=== PATIENT | female | born 1990 | race Caucasian/White ===

== ENCOUNTER 2016-05-15 17:37 | Emergency (ER) | payer OTHER ==
[2016-05-15] MEDS ORDERED: NS 1,000 ML IV ONE (18:02)
--- NOTE | 2016-05-15 18:02 | EDPHY ---
H & P Stated Complaint: L anterior cp, worse with deep breaths, sob started 2 hours ago HPI/ROS: HPI CHIEF COMPLAINT: Chest pain HISTORY OF PRESENT ILLNESS: This patient very pleasant 26-year-old female, she has no significant medical history except for depression, she presents to the emergency room with 3.5 hours of left-sided chest discomfort. She tells me that she was driving her car to [employer] from [place] and developed a discomfort in left side of her chest that she describes as an achy sensation associated with deep breaths. She tells me that the pain started in left anterior chest did radiate to her back scapula and up to her left shoulder and jaw. It was only associated with breathing and specifically taking deep breaths. At 1 point she did develop a little bit of tingling in her 4th and 5th digit of her left hand. No weakness. Denies not vomiting. But does endorse nausea. She has never had any symptoms like this before. She has not been sick recently. She denies history of DVT or PE. Denies a history of collapsed lung or recent illness or pneumonia. Patient tells me it is since dissipated however on deep inspiration she still has some discomfort. No recent injury. She does not have any risk factors for coronary artery disease nor did she have risk factors for pulmonary embolism. She does not take control. Past Medical History:Depression Past Surgical History: Appendectomy Social History: Denies use of drugs alcohol tobacco products Family History: No significant coronary artery disease At a young age in her family or premature cardiac . ROS REVIEW OF SYSTEMS: A comprehensive 10 point review of systems is otherwise negative aside from elements mentioned in the history of present illness. Exam Constitutional triage nursing summary reviewed, vital signs reviewed, awake/ alert. Eyes normal conjunctivae and sclera, EOMI, PERRLA. HENT normal inspection, atraumatic, moist mucus membranes, no epistaxis, neck supple/ no meningismus, no raccoon eyes. Respiratory clear to auscultation bilaterally, normal breath sounds, no respiratory distress, no wheezing. Cardiovascular rate normal, regular rhythm, no murmur, no edema, distal pulses normal. Gastrointestinal soft, non-tender, no rebound, no guarding, normal bowel sounds, no distension, no pulsatile mass. Genitourinary no CVA tenderness. Musculoskeletal no midline vertebral tenderness, full range of motion, no calf swelling, no tenderness of extremities, no meningismus, good pulses, neurovascularly intact. Skin pink, warm, & dry, no rash, skin atraumatic. Neurologic awake, alert and oriented x 3, AAOx3, moves all 4 extremities equally, motor intact, sensory intact, CN II-XII intact, normal cerebellar, normal vision, normal speech. Psychiatric normal mood/affect. Heme/Lymph/Immune no lymphadenopathy. Differential diagnosis includes but is not limited to: ACS, atypical chest pain , pneumothorax, pneumonia, pulmonary embolism, aortic dissection, congestive heart failure, tumor, musculoskeletal pain, esophageal pain, GERD, peptic ulcer disease, pancreatitis Medical Decision Making: Patient be placed on full cardiac cath technologist, an IV will be established, obtain blood work, patient had a chest x-ray two view, EKG, D- dimer. Re-evaluation: EKG interpretation by me on record in [facility] system. Impression time of EKG 1808, this is sinus rhythm rate of 71, I do not appreciate any signs of arrhythmia, or acute ischemia specifically is no ST elevation, ST depression or T-wave abnormalities. Intervals are appropriate. Normal appearing EKG 1942: re-evaluation at this time patient is not have any chest pain shortness of breath numbness or taking a nausea vomiting or weakness. She is resting comfortably without any complaints. Her EKG is nonischemic negative troponin. Chest x-ray is unremarkable for acute cardiopulmonary disease. D-dimer negative. She is 26 resulted very low risk for cardiac disease and no has no risk factors for PE. I will repeat her EKG and troponin this would be a 5-6 hour troponin. If this is normal is highly unlikely to be acute coronary syndrome cardiac disease or pulmonary embolism. I will allow the patient to go home. She does understand if she develops any worsening chest pain, shortness of breath nausea vomiting diaphoresis that she needs to seek medical attention. ED x-ray chest two view: negative for acute cardiopulmonary disease. Specifically nothing to explain left-sided pleuritic or inspiratory chest pain. No pneumothorax. Image interpreted by myself EKG interpretation by me on record in [facility] [place] system. this is a repeat EKG time of EKG 1945, this is sinus rhythm rate of 70 again there is no acute ischemic change appreciated specifically no ST elevation, ST depression, T-wave abnormalities intervals are appropriate. Unremarkable EKG repeat EKG. When compared to previous EKG unchanged. 2106: repeat troponin is negative. Patient has no chest pain or shortness of breath she is resting comfortably. 1 over patient's extensive workup with her. She feels comfortable going home. At this time she has no chest pain or shortness of breath. I did refer her to Cardiology on an outpatient patient's however she does understand she develops worsening symptoms return to the emergency room. No indication that she is having acute coronary syndrome pulmonary embolism and pneumothorax with normal EKGs normal troponin negative D- dimer and unremarkable chest x-ray. Source: Patient - Personal History Current Tetanus/Diphtheria Vaccine: Unsure Current Tetanus Diphtheria and Acellular Pertussis (TDAP): Unsure - Medical/Surgical History Hx Asthma: No Hx Chronic Respiratory Disease: No Hx Diabetes: No Hx Cardiac Disease: No Hx Renal Disease: No Hx Cirrhosis: No Hx Alcoholism: No Hx HIV/AIDS: No Hx Splenectomy or Spleen Trauma: No Other PMH: denies - Social History Smoking Status: Never smoked Constitutional: Initial Vital Signs Temperature (C) 37.2 C 05/15/16 17:41 Heart Rate 80 05/15/16 17:41 Respiratory Rate 16 05/15/16 17:41 Blood Pressure 110/82 H 05/15/16 17:41 O2 Sat (%) 97 05/15/16 17:41 O2 Delivery Mode Room Air Allergies/Adverse Reactions: No Known Allergies Allergy (Unverified 05/15/16 17:40) Home Medications: Medication Instructions Recorded Effexor 05/15/16 Medical Decision Making - Data Points Laboratory Results: Laboratory Results 05/15/16 18:17 05/15/16 18:17 05/15/16 05/15/16 05/15/16 19:52 18:17 18:17 WBC RBC Hgb Hct MCV MCH MCHC RDW Plt Count MPV Neut % (Auto) Lymph % (Auto) [place] % (Auto) Eos % (Auto) Baso % (Auto) Nucleat RBC Rel Count Absolute Neuts (auto) Absolute Lymphs (auto) Absolute Monos (auto) Absolute Eos (auto) Absolute Basos (auto) Absolute Nucleated RBC Immature Gran % Immature Gran # D-Dimer Sodium 139 mEq/L mEq/L (134-144) Potassium 4.2 mEq/L mEq/L (3.5-5.2) Chloride 101 mEq/L mEq/L (97-110) Carbon Dioxide 28 mEq/l mEq/l (22-31) Anion Gap 10 mEq/L mEq/L (8-16) BUN 12 mg/dL mg/dL (7-23) Creatinine 0.8 mg/dL mg/dL (0.6-1.0) Estimated GFR > 60 Glucose 82 mg/dL mg/dL (70-100) Calcium 9.8 mg/dL mg/dL (8.5-10.4) Magnesium 2.2 mg/dL mg/dL (1.6-2.3) Total Bilirubin 0.8 mg/dL mg/dL (0.1-1.4) Conjugated Bilirubin 0.4 mg/dL mg/dL (0.0-0.5) Unconjugated Bilirubin 0.4 mg/dL mg/dL (0.0-1.1) AST 31 IU/L IU/L (14-46) ALT 36 IU/L IU/L (9-52) Alkaline Phosphatase 92 IU/L IU/L (38-126) Creatine Kinase 101 IU/L IU/L (0-156) CK-MB (CK-2) Fraction 0.52 ng/mL ng/mL (0-3.19) Troponin I < 0.012 ng/mL ng/mL < 0.012 ng/mL ng/mL (0-0.034) (0-0.034) NT-Pro-B Natriuret Pep 42 pg/mL pg/mL (0-125) Total Protein 7.9 g/dL g/dL (6.3-8.2) Albumin 4.7 g/dL g/dL (3.5-5.0) Lipase 119.0 IU/L IU/L (23-300) Beta HCG, Qual NEGATIVE 05/15/16 05/15/16 18:17 18:17 WBC 8.53 10^3/uL 10^3/uL (3.80-9.50) RBC 4.98 10^6/uL 10^6/uL (4.18-5.33) Hgb 14.8 g/dL g/dL (12.6-16.3) Hct 44.0 % % (38.0-47.0) MCV 88.4 fL fL (81.5-99.8) MCH 29.7 pg pg (27.9-34.1) MCHC 33.6 g/dL g/dL (32.4-36.7) RDW 12.8 % % (11.5-15.2) Plt Count 275 10^3/uL 10^3/uL (150-400) MPV 10.3 fL fL (8.7-11.7) Neut % (Auto) 60.3 % % (39.3-74.2) Lymph % (Auto) 31.8 % % (15.0-45.0) [place] % (Auto) 7.6 % % (4.5-13.0) Eos % (Auto) 0.0 % L % (0.6-7.6) Baso % (Auto) 0.1 % L % (0.3-1.7) Nucleat RBC Rel Count 0.0 % % (0.0-0.2) Absolute Neuts (auto) 5.14 10^3/uL 10^3/uL (1.70-6.50) Absolute Lymphs (auto) 2.71 10^3/uL 10^3/uL (1.00-3.00) Absolute Monos (auto) 0.65 10^3/uL 10^3/uL (0.30-0.80) Absolute Eos (auto) 0.00 10^3/uL L 10^3/uL (0.03-0.40) Absolute Basos (auto) 0.01 10^3/uL L 10^3/uL (0.02-0.10) Absolute Nucleated RBC 0.00 10^3/uL 10^3/uL (0-0.01) Immature Gran % 0.2 % % (0.0-1.1) Immature Gran # 0.02 10^3/uL 10^3/uL (0.00-0.10) D-Dimer < 0.27 ug/mLFEU ug/mLFEU (0.00-0.50) Sodium Potassium Chloride Carbon Dioxide Anion Gap BUN Creatinine Estimated GFR Glucose Calcium Magnesium Total Bilirubin Conjugated Bilirubin Unconjugated Bilirubin AST ALT Alkaline Phosphatase Creatine Kinase CK-MB (CK-2) Fraction Troponin I NT-Pro-B Natriuret Pep Total Protein Albumin Lipase Beta HCG, Qual Medications Given: Discontinued Medications Sodium Chloride (Ns) 1,000 mls @ 0 mls/hr IV ONCE ONE PRN Reason: Wide Open Stop: 05/15/16 18:03 Last Admin: 05/15/16 18:26 Dose: 1,000 mls Departure - Departure Disposition: Home, Routine, Self-Care Clinical Impression: Chest pain Qualifiers: Chest pain type: chest pain on breathing Qualified Code(s): R07.1 - Chest pain on breathing Condition: Good Instructions: Chest Pain (ED), Pleurisy (ED) Additional Instructions: 1. Stay well-hydrated drink lots of fluids. 2. He develops severe chest pain shortness of breath numbness or tingling return to the emergency room. Referrals: JOEL ROSENBERG [Other] - As per Instructions Elena Bee MD [Medical Doctor] - As per Instructions
--- NOTE | 2016-05-15 18:11 | CPEKG ---
Heart Rate: 71 RR Interval: 845 P-R Interval: 144 QRSD Interval: 84 QT Interval: 384 QTC Interval: 418 P [place]: 60 QRS [place]: 82 T Wave [place]: 32 EKG Severity - NORMAL ECG - EKG Impression: SINUS RHYTHM Electronically Signed By: Oumar Graf 15-May-2016 21:17:30
[2016-05-15 18:31] LABS: % IMMATURE GRANULYOCYTES 0.2 % (0.0-1.1); ABSOLUTE IMMATURE GRANULOCYTES 0.02 10^3/uL (0.00-0.10); ADD DIFF? NO; ADD MORPH? NO; ADD SCAN? NO; ATYPICAL LYMPHOCYTE FLAG 10 (0-99); FRAGMENT RBC FLAG 0 (0-99); HEMOGLOBIN 14.8 g/dL (12.6-16.3); LEFT SHIFT FLG 0 (0-99); LIPEMIA HEMOLYSIS FLAG 80 (0-99); MEAN CELL HEMOGLOBIN 29.7 pg (27.9-34.1); MEAN CELL HEMOGLOBIN CONCENTR. 33.6 g/dL (32.4-36.7); MEAN CELL VOLUME 88.4 fL (81.5-99.8); MEAN PLATELET VOLUME 10.3 fL (8.7-11.7); PLATELET CLUMPS FLAG 0 (0-99); PLATELET COUNT 275 10^3/uL (150-400); RED BLOOD CELL COUNT 4.98 10^6/uL (4.18-5.33); RED CELL DISTRIBUTION WIDTH 12.8 % (11.5-15.2)
[2016-05-15 18:43] LABS: ALANINE AMINOTRANSFERASE 36 IU/L (9-52); ALBUMIN 4.7 g/dL (3.5-5.0); ALKALINE PHOSPHATASE 92 IU/L (38-126); ANION GAP 10 mEq/L (8-16); ASPARTATE AMINOTRANSFERASE 31 IU/L (14-46); BILIRUBIN,TOTAL 0.8 mg/dL (0.1-1.4); BILIRUBIN-CONJUGATED 0.4 mg/dL (0.0-0.5); BILIRUBIN-UNCONJUGATED 0.4 mg/dL (0.0-1.1); CALCIUM 9.8 mg/dL (8.5-10.4); CARBON DIOXIDE 28 mEq/l (22-31); CHLORIDE 101 mEq/L (97-110); CREATININE 0.8 mg/dL (0.6-1.0); GLOMERULAR FILTRATION RATE > 60; GLUCOSE 82 mg/dL (70-100); MAGNESIUM 2.2 mg/dL (1.6-2.3); POTASSIUM 4.2 mEq/L (3.5-5.2); SODIUM 139 mEq/L (134-144); TOTAL PROTEIN 7.9 g/dL (6.3-8.2)
[2016-05-15 18:54] LABS: CREATINE KINASE-MB FRACTION 0.52 ng/mL (0-3.19); TROPONIN I < 0.012 ng/mL (0-0.034)
--- NOTE | 2016-05-15 19:48 | CPEKG ---
Heart Rate: 70 RR Interval: 857 P-R Interval: 140 QRSD Interval: 84 QT Interval: 396 QTC Interval: 428 P [place]: 57 QRS [place]: 81 T Wave [place]: 41 EKG Severity - NORMAL ECG - EKG Impression: SINUS RHYTHM Electronically Signed By: Oumar Graf 15-May-2016 21:17:30
[2016-05-15 21:15] VITALS: BP 123/73; PULSE 90; RESP 18; TEMP 98.8; O2SAT 98
== END 2016-05-15 21:15 | disposition home or self-care (01) ==
LOC: EDSEX 17:37
DX: R07.1 Chest pain on breathing (principal)